=== PATIENT | female | born 2000 | race Caucasian/White ===

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

== ENCOUNTER 2019-02-06 10:48 | Emergency (ER) | payer MEDICAID ==
[~2019-02-06] VITALS: Ht 172.7 cm; Wt 118.3 kg
[2019-02-06 11:30] LABS: MICROSCOPIC NOT IND
[2019-02-06 11:35] LABS: CULTURE INDICATED? NO
[2019-02-06 12:05] LABS: BASOPHILS # (AUTO) 0.02 x10^3/uL (0-0.3); BASOPHILS % (AUTO) 0 % (0-1); EOSINOPHILS # (AUTO) 0.07 x10^3/uL (0-0.8); EOSINOPHILS % (AUTO) 1 % (1-7); LYMPHOCYTES % (AUTO) 33 % (22-44); MD NO; MEAN CORPUSCULAR HEMOGLOBIN 29.4 pg (27.0-34.8); MEAN CORPUSCULAR HGB CONC 33.6 g/dL (32.4-35.8); MEAN CORPUSCULAR VOLUME 87.5 fL (80-100); MEAN PLATELET VOLUME 8.2 fL (7.4-10.4); MONOCYTES % (AUTO) 7 % (2-9); NEUTROPHILS # (AUTO) 3.56 x10^3/uL (1.8-8.0); NEUTROPHILS % (AUTO) 59 % (42-75); PLATELET COUNT 295 x10^3/uL (130-400); RED BLOOD COUNT 4.95 x10^6/uL (3.82-5.3); RED CELL DISTRIBUTION WIDTH 12.9 % (9.6-15.2)
[2019-02-06 12:18] LABS: ALANINE AMINOTRANSFERASE 36 U/L (12-78); ANION GAP 8 mmol/L (5-15); CALCIUM 9.6 mg/dL (8.5-10.1); CHLORIDE 110 mmol/L (98-107)
[2019-02-06 12:23] LABS: ALKALINE PHOSPHATASE 68 U/L (45-117); BILIRUBIN,TOTAL 0.6 mg/dL (0.2-1.0); TOTAL PROTEIN 7.7 g/dL (6.4-8.2)
--- NOTE | 2019-02-06 14:50 | NUR ---
TO ROOM FROM LOBBY. NAD.
[2019-02-06] MEDS ORDERED: MAALOX/HYOSCYAMINE/LIDOCAINE 45 ML BTL ONE (14:55)
[2019-02-06] MEDS ORDERED: ONDANSETRON ODT 4 MG ONE (14:55)
[2019-02-06] MEDS ORDERED: MAALOX/HYOSCYAMINE/LIDOCAINE 45 ML BTL PO ONE (15:00)
[2019-02-06] MEDS ORDERED: ONDANSETRON ODT 4 MG PO ONE (15:00)
--- NOTE | 2019-02-06 15:04 | NUR ---
MD GALLOWAY AT BEDSIDE TO DISCUSS POC & DC PLAN W/ PT, PT REPROTS NO NEEDS OR QUESTIONS AT THIS TIME
[2019-02-06 15:08] VITALS: BP 129/68
== END 2019-02-06 15:10 | disposition home or self-care (01) ==
LOC: ED 15:04
DX: K29.00 Acute gastritis without bleeding (principal); F31.9 Bipolar disorder, unspecified
CPT/HCPCS: 36415; 76700; 80053; 81003; 83690; 84703; 85025; 99284; Q0162

== ENCOUNTER 2019-08-03 10:31 | Emergency (ER) | payer MEDICAID ==
[~2019-08-03] VITALS: Ht 172.7 cm; Wt 113.3 kg
[2019-08-03] MEDS ORDERED: ONDANSETRON 2MG/ML, 2ML IVPush ONE (11:00)
[2019-08-03] MEDS ORDERED: MORPHINE SULFATE 4 MG/ML, 1ML IVPush PRN (11:00)
[2019-08-03] MEDS ORDERED: SODIUM CHLORIDE FLUSH 10ML SYR IVF ONE (11:00)
[2019-08-03] MEDS ORDERED: FAMOTIDINE 20 MG/2 ML IV ONE (11:00)
[2019-08-03] MEDS ORDERED: FAMOTIDINE 20 MG/2 ML ONE (11:17)
[2019-08-03] MEDS ORDERED: MORPHINE SULFATE 4 MG/ML, 1ML ONE (11:17)
[2019-08-03] MEDS ORDERED: ONDANSETRON 2MG/ML, 2ML ONE (11:17)
[2019-08-03 11:23] LABS: MICROSCOPIC NOT IND
[2019-08-03 11:25] LABS: BASOPHILS # (AUTO) 0.03 x10^3/uL (0-0.3); BASOPHILS % (AUTO) 0 % (0-1); EOSINOPHILS # (AUTO) 0.07 x10^3/uL (0-0.8); EOSINOPHILS % (AUTO) 1 % (1-7); LYMPHOCYTES # (AUTO) 2.19 x10^3/uL (1-6.1); LYMPHOCYTES % (AUTO) 29 % (22-44); MD NO; MEAN CORPUSCULAR HEMOGLOBIN 29.1 pg (27.0-34.8); MEAN CORPUSCULAR HGB CONC 33.3 g/dL (32.4-35.8); MEAN CORPUSCULAR VOLUME 87.3 fL (80-100); MEAN PLATELET VOLUME 8.1 fL (7.4-10.4); MONOCYTES # (AUTO) 0.53 x10^3/uL (0-1.4); MONOCYTES % (AUTO) 7 % (2-9); NEUTROPHILS # (AUTO) 4.74 x10^3/uL (1.8-8.0); NEUTROPHILS % (AUTO) 63 % (42-75); PLATELET COUNT 296 x10^3/uL (130-400); RED BLOOD COUNT 4.94 x10^6/uL (3.82-5.3); RED CELL DISTRIBUTION WIDTH 13.4 % (9.6-15.2)
[2019-08-03 11:28] LABS: CULTURE INDICATED? NO
[2019-08-03 11:38] LABS: ALANINE AMINOTRANSFERASE 26 U/L (12-78); ALBUMIN 3.8 g/dL (3.4-5.0); ANION GAP 4 mmol/L (5-15); CALCIUM 9.3 mg/dL (8.5-10.1); CHLORIDE 113 mmol/L (98-107)
[2019-08-03 11:43] LABS: ALKALINE PHOSPHATASE 59 U/L (45-117); BILIRUBIN,TOTAL 0.6 mg/dL (0.2-1.0); TOTAL PROTEIN 7.4 g/dL (6.4-8.2)
--- NOTE | 2019-08-03 11:51 | NUR ---
RECEIVED REPORT FROM HAO HUNTER. ASSUMING CARE AT THIS TIME.
[2019-08-03 11:52] VITALS: BP 109/57
--- NOTE | 2019-08-03 11:53 | NUR ---
PT STATES PAIN IN MANAGABLE AFTER PAIN MEDS. PT RESTING COMFORTABLY ON GURNEY. FAMILY AT BEDSIDE.
--- NOTE | 2019-08-03 11:54 | NUR ---
ALL RESULTS ARE BACK AT THIS TIME. CHART UP FOR RECHECK.
--- NOTE | 2019-08-03 11:57 | NUR ---
PROVIDER AT BEDSIDE TO UPDATE PT ON POC.
== END 2019-08-03 12:13 | disposition home or self-care (01) ==
LOC: ED 11:43
DX: K29.00 Acute gastritis without bleeding (principal)
CPT/HCPCS: 36415; 76700; 80053; 81003; 83690; 84703; 85025; 96374; 96375; 99284; J2270; J2405; J3490

== ENCOUNTER 2019-11-10 17:42 | Emergency (ER) | payer MEDICAID ==
[~2019-11-10] VITALS: Ht 172.7 cm; Wt 110.5 kg
[2019-11-10 17:44] VITALS: BP 127/80
== END 2019-11-10 19:31 | disposition home or self-care (01) ==
LOC: ED 19:10
DX: S80.02XA Contusion of left knee, initial encounter (principal); E03.9 Hypothyroidism, unspecified; W01.0XXA Fall on same level from slipping, tripping and stumbling without subsequent striking against object, initial encounter; Y93.89 Activity, other specified; Y92.098 Other place in other non-institutional residence as the place of occurrence of the external cause; Y99.8 Other external cause status
CPT/HCPCS: 99284

== ENCOUNTER 2019-12-01 13:18 | Emergency (ER) | payer MEDICAID ==
[~2019-12-01] VITALS: Ht 172.7 cm; Wt 113.8 kg
[2019-12-01 13:20] VITALS: BP 129/77
--- NOTE | 2019-12-01 13:52 | NUR ---
REPORT FROM DALE CA.
== END 2019-12-01 14:43 | disposition home or self-care (01) ==
LOC: ED 13:41
DX: S16.1XXA Strain of muscle, fascia and tendon at neck level, initial encounter (principal); S39.012A Strain of muscle, fascia and tendon of lower back, initial encounter; S40.212A Abrasion of left shoulder, initial encounter; V49.40XA Driver injured in collision with unspecified motor vehicles in traffic accident, initial encounter; Y93.89 Activity, other specified; Y92.488 Other paved roadways as the place of occurrence of the external cause; Y99.8 Other external cause status
CPT/HCPCS: 72020; 72050; 72110; 99284

== ENCOUNTER 2020-03-26 19:33 | Emergency (ER) | payer MEDICAID ==
[~2020-03-26] VITALS: Ht 172.7 cm; Wt 106.0 kg
--- NOTE | 2020-03-26 20:06 | NUR ---
LINECASTING MACHINE KEYBOARD OPERATOR: EKG DONE IN TRIAGE.
--- NOTE | 2020-03-26 21:13 | NUR ---
RAILROAD CAR INSPECTOR: PT. TO ROOM FROM LOBBY AT THIS TIME.
--- NOTE | 2020-03-26 21:18 | NUR ---
PT RESTING IN [facility] AT THIS TIME; NADN. DR SIDDIQUI AT FOR PT HISTORY AND ASSESSMENT. PT VERBALIZES UNDERSTANDING OF POC AND ER PROCESS AND DENIES ANY OTHER NEEDS AT THIS TIME. CALL LIGHT IS WITHIN REACH.
[2020-03-26] MEDS ORDERED: KETOROLAC 60 MG/2 ML ONE (21:28)
[2020-03-26] MEDS ORDERED: KETOROLAC 30 MG/1 ML IM ONE (21:30)
--- NOTE | 2020-03-26 21:31 | NUR ---
PT MEDICATED PER MAR FOR PAIN.
[2020-03-26 21:53] LABS: BASOPHILS # (AUTO) 0.02 x10^3/uL (0-0.1); BASOPHILS % (AUTO) 0 % (0-1); EOSINOPHILS # (AUTO) 0.06 x10^3/uL (0-0.4); EOSINOPHILS % (AUTO) 1 % (1-7); LYMPHOCYTES # (AUTO) 3.04 x10^3/uL (1-3.4); LYMPHOCYTES % (AUTO) 32 % (22-44); MD NO; MEAN CORPUSCULAR HEMOGLOBIN 29.5 pg (27.0-34.8); MEAN PLATELET VOLUME 8.6 fL (7.4-10.4); MONOCYTES # (AUTO) 0.65 x10^3/uL (0.2-0.8); MONOCYTES % (AUTO) 7 % (2-9); NEUTROPHILS # (AUTO) 5.75 x10^3/uL (1.8-6.8); NEUTROPHILS % (AUTO) 60 % (42-75); PLATELET COUNT 291 x10^3/uL (130-400); RED BLOOD COUNT 4.78 x10^6/uL (3.82-5.3); RED CELL DISTRIBUTION WIDTH 13.1 % (9.6-15.2)
[2020-03-26 22:00] LABS: ALBUMIN 4.1 g/dL (3.4-5.0); ANION GAP 7 mmol/L (5-15); CALCIUM 9.6 mg/dL (8.5-10.1); CHLORIDE 110 mmol/L (98-107); CREATININE 0.76 mg/dL (0.55-1.02)
[2020-03-26 22:04] LABS: TROPONIN I < 0.015 ng/mL (0.000-0.045)
--- NOTE | 2020-03-26 23:16 | NUR ---
PT D/C WITH D/C SUMMARY AND SCRIPTS. ALL QUESTIONS ANSWERED. PT AMBULATES TO REGISTRATION DESK WITH STEADY GAIT FOR D/C HOME. PT VSS AND UPDATED IN EMR PRIOR TO PT D/C.
[2020-03-26 23:17] VITALS: BP 129/84
== END 2020-03-26 23:19 ==
LOC: ED 21:26
DX: R07.2 Precordial pain (principal); R06.02 Shortness of breath; E03.9 Hypothyroidism, unspecified; Z87.891 Personal history of nicotine dependence
CPT/HCPCS: 36415; 71046; 80048; 82040; 84484; 84703; 85025; 85379; 93005; 96372; 99285; J1885

== ENCOUNTER 2020-04-02 15:12 | Emergency (ER) | payer MEDICAID ==
[~2020-04-02] VITALS: Ht 172.7 cm; Wt 125.0 kg
[2020-04-02] MEDS ORDERED: ASPIRIN 81 MG TABLET CHEW PO ONE (15:30)
[2020-04-02 15:55] LABS: BASOPHILS # (AUTO) 0.02 x10^3/uL (0-0.1); BASOPHILS % (AUTO) 0 % (0-1); EOSINOPHILS # (AUTO) 0.13 x10^3/uL (0-0.4); EOSINOPHILS % (AUTO) 2 % (1-7); LYMPHOCYTES # (AUTO) 2.53 x10^3/uL (1-3.4); LYMPHOCYTES % (AUTO) 36 % (22-44); MD NO; MEAN CORPUSCULAR HEMOGLOBIN 29.5 pg (27.0-34.8); MEAN CORPUSCULAR HGB CONC 33.8 g/dL (32.4-35.8); MEAN CORPUSCULAR VOLUME 87.2 fL (80-100); MEAN PLATELET VOLUME 8.8 fL (7.4-10.4); MONOCYTES # (AUTO) 0.53 x10^3/uL (0.2-0.8); MONOCYTES % (AUTO) 8 % (2-9); NEUTROPHILS # (AUTO) 3.82 x10^3/uL (1.8-6.8); NEUTROPHILS % (AUTO) 54 % (42-75); PLATELET COUNT 280 x10^3/uL (130-400); RED BLOOD COUNT 4.74 x10^6/uL (3.82-5.3); RED CELL DISTRIBUTION WIDTH 13.1 % (9.6-15.2)
--- NOTE | 2020-04-02 15:57 | NUR ---
CIRCULAR SAWYER HELPER: PT FROM LOBBY TO ROOM AT THIS TIME. NO ACUTE DISTRESS NOTED AT THIS TIME.
[2020-04-02] MEDS ORDERED: ASPIRIN 81 MG TABLET CHEW ONE (15:59)
[2020-04-02 16:07] LABS: ALBUMIN 3.9 g/dL (3.4-5.0); ANION GAP 6 mmol/L (5-15); CALCIUM 9.1 mg/dL (8.5-10.1); CHLORIDE 112 mmol/L (98-107); CREATININE 0.71 mg/dL (0.55-1.02)
[2020-04-02 16:11] LABS: TROPONIN I < 0.015 ng/mL (0.000-0.045)
--- NOTE | 2020-04-02 16:15 | NUR ---
THIS IS A 20 YO FEMALE COMING IN FOR LEFT SIDED SHARP CHEST PAIN RADIATING UP NECK AND DOWN LEFT ARM STARTING AT APPROX 1330. PATIENT WAS SEEN HERE 2 WEEKS AGO FOR SAME AND WAS TOLD TO COME BACK IF NOT GETTING BETTER. PATIENT HAS HX OF ANXIETY, APPEARS AXIOUS AT THIS TIME. ALS OC/O SOB RELATED TO PAIN, LUNG SOUNDS CLEAR THROUGHOUT, SPEAKING IN FULL SENTENCES, RESPIRATIONS EVEN AND UNLABORED. ALL MONITORING IN PLACE, NSR ON CENTRAL SUPPLY AIDE, VSS, NADN. PATIENT MEDICATED PER EMAR, TOLERATED WELL. CALL LIGHT IN REACH, DENIES NEEDS AT THIS TIME. AWAITING PENDING LABS
--- NOTE | 2020-04-02 16:22 | NUR ---
TO ROOM FOR EVAL
[2020-04-02] MEDS ORDERED: KETOROLAC 30 MG/1 ML IM ONE (16:30)
[2020-04-02] MEDS ORDERED: KETOROLAC 30 MG/1 ML ONE (16:35)
--- NOTE | 2020-04-02 16:51 | NUR ---
PATIENT MEDICATED PER EMAR, TOLERATED WELL. WILL MONITOR FOR ANY ADVERSE REACTIONS, AND VERIFY RELIEF OF PAIN PRIOR TO DISCHARGE
[2020-04-02 16:52] VITALS: BP 119/69
--- NOTE | 2020-04-02 17:19 | NUR ---
Patient given discharge instructions and they have confirmed that they understand the instructions. Patient ambulatory with steady gait.
== END 2020-04-02 17:21 | disposition home or self-care (01) ==
LOC: ED 16:48
DX: R07.89 Other chest pain (principal); E03.9 Hypothyroidism, unspecified; R94.31 Abnormal electrocardiogram [ECG] [EKG]
CPT/HCPCS: 36415; 71045; 80048; 82040; 83880; 84484; 85025; 93005; 96372; 99285; J1885

== ENCOUNTER 2020-04-11 17:39 | Emergency (ER) | payer MEDICAID ==
[~2020-04-11] VITALS: Ht 172.7 cm; Wt 111.4 kg
[2020-04-11] MEDS ORDERED: HYDROcodone/APAP 5/325 TABLET PO ONE (18:00)
[2020-04-11] MEDS ORDERED: KETOROLAC 30 MG/1 ML IM ONE (18:00)
[2020-04-11] MEDS ORDERED: KETOROLAC 60 MG/2 ML ONE (18:02)
[2020-04-11] MEDS ORDERED: HYDROcodone/APAP 5/325 TABLET ONE (18:03)
[2020-04-11 18:41] LABS: HCG UR SG 1.024 (1.003-1.030)
[2020-04-11 19:17] VITALS: BP 121/83
== END 2020-04-11 19:30 | disposition home or self-care (01) ==
LOC: ED 19:24
DX: R10.2 Pelvic and perineal pain (principal); N98.9 Complication associated with artificial fertilization, unspecified; E03.9 Hypothyroidism, unspecified; Z87.891 Personal history of nicotine dependence
CPT/HCPCS: 81025; 96372; 99283; J1885

== ENCOUNTER 2020-04-29 16:05 | Emergency (ER) | payer MEDICAID ==
[~2020-04-29] VITALS: Ht 172.7 cm; Wt 105.0 kg
[2020-04-29 16:12] VITALS: BP 103/56
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
[2020-04-29] MEDS ORDERED: SODIUM CHLORIDE 0.9% 1,000 ML IV ONE (16:19)
[2020-04-29] MEDS ORDERED: HYDROmorphone 1 MG/ML, 1ML INJ IVPush PRN (16:30)
[2020-04-29] MEDS ORDERED: HYDROmorphone 1 MG/ML, 1ML INJ ONE (16:31)
--- NOTE | 2020-04-29 16:50 | NUR ---
MEDICATED PER EMAR FOR LOWER BACK PAIN AT 04/[address] SCAN AT 1650
[2020-04-29] MEDS ORDERED: OMNIPAQUE 350 MG/ML, 100ML BOTTLE ONE (17:11)
--- NOTE | 2020-04-29 17:53 | NUR ---
DISCHARGED IN CARE OF SIGNIFICANT OTHER
== END 2020-04-29 17:55 | disposition home or self-care (01) ==
LOC: ED 17:14
DX: S30.1XXA Contusion of abdominal wall, initial encounter (principal); S20.212A Contusion of left front wall of thorax, initial encounter; E03.9 Hypothyroidism, unspecified; V49.9XXA Car occupant (driver) (passenger) injured in unspecified traffic accident, initial encounter; Y93.89 Activity, other specified; Y92.488 Other paved roadways as the place of occurrence of the external cause; Y99.8 Other external cause status
CPT/HCPCS: 74177; 96361; 96374; 99285; J1170; J7030; Q9967

== ENCOUNTER 2020-05-05 17:00 | Emergency (ER) | payer MEDICAID ==
[~2020-05-05] VITALS: Ht 172.7 cm; Wt 110.5 kg
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
--- NOTE | 2020-05-05 17:51 | NUR ---
PT TRANSPORTED TO [facility].
[2020-05-05 18:10] VITALS: BP 114/69
== END 2020-05-05 19:02 | disposition home or self-care (01) ==
LOC: ED 18:24
DX: G89.11 Acute pain due to trauma (principal); R07.89 Other chest pain; M94.0 Chondrocostal junction syndrome [Tietze]; R94.31 Abnormal electrocardiogram [ECG] [EKG]; E03.9 Hypothyroidism, unspecified; Z87.891 Personal history of nicotine dependence; X58.XXXA Exposure to other specified factors, initial encounter; Y93.89 Activity, other specified; Y92.89 Other specified places as the place of occurrence of the external cause; Y99.8 Other external cause status
CPT/HCPCS: 93005; 99283

== ENCOUNTER 2020-05-06 16:36 | Emergency (ER) | payer MEDICAID ==
[~2020-05-06] VITALS: Ht 172.7 cm; Wt 110.0 kg
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
--- NOTE | 2020-05-06 17:50 | NUR ---
PT PROVIDED W/ URINE CUP AND EDUCATED ON NEED FOR SAMPLE.
[2020-05-06 18:09] LABS: BASOPHILS # (AUTO) 0.01 x10^3/uL (0-0.1); BASOPHILS % (AUTO) 0 % (0-1); EOSINOPHILS # (AUTO) 0.04 x10^3/uL (0-0.4); EOSINOPHILS % (AUTO) 1 % (1-7); LYMPHOCYTES % (AUTO) 32 % (22-44); MD NO; MEAN CORPUSCULAR HEMOGLOBIN 29.8 pg (27.0-34.8); MEAN CORPUSCULAR HGB CONC 34.3 g/dL (32.4-35.8); MEAN CORPUSCULAR VOLUME 86.8 fL (80-100); MEAN PLATELET VOLUME 8.4 fL (7.4-10.4); MONOCYTES # (AUTO) 0.59 x10^3/uL (0.2-0.8); MONOCYTES % (AUTO) 8 % (2-9); NEUTROPHILS # (AUTO) 4.56 x10^3/uL (1.8-6.8); NEUTROPHILS % (AUTO) 60 % (42-75); PLATELET COUNT 327 x10^3/uL (130-400); RED BLOOD COUNT 4.91 x10^6/uL (3.82-5.3); RED CELL DISTRIBUTION WIDTH 12.9 % (9.6-15.2)
--- NOTE | 2020-05-06 18:13 | NUR ---
URINE COLLECTED AND SENT TO LAB.
[2020-05-06 18:17] LABS: ALANINE AMINOTRANSFERASE 19 U/L (12-78); ANION GAP 7 mmol/L (5-15); CALCIUM 9.4 mg/dL (8.5-10.1); CHLORIDE 109 mmol/L (98-107); CREATININE 0.81 mg/dL (0.55-1.02)
[2020-05-06 18:22] LABS: ALKALINE PHOSPHATASE 50 U/L (45-117); BILIRUBIN,TOTAL 0.5 mg/dL (0.2-1.0); TOTAL PROTEIN 7.9 g/dL (6.4-8.2)
[2020-05-06 18:32] LABS: MICROSCOPIC NOT IND
--- NOTE | 2020-05-06 18:48 | NUR ---
ALL TESTS RESULTED PT IS UP FOR RECHECK AT THIS TIME.
[2020-05-06 19:13] VITALS: BP 112/63
== END 2020-05-06 19:37 | disposition home or self-care (01) ==
LOC: ED 18:07
DX: S23.9XXA Sprain of unspecified parts of thorax, initial encounter (principal); E03.9 Hypothyroidism, unspecified; V43.51XA Car driver injured in collision with sport utility vehicle in traffic accident, initial encounter; Y93.89 Activity, other specified; Y92.410 Unspecified street and highway as the place of occurrence of the external cause; Y99.8 Other external cause status
CPT/HCPCS: 36415; 80053; 81003; 84703; 85025; 99283

== ENCOUNTER 2020-11-17 12:02 | Emergency (ER) | payer MEDICAID ==
[~2020-11-17] VITALS: Ht 172.7 cm; Wt 103.0 kg
[~2020-11-17 12:02] MED LIST changes: -RISP3TAB3 PO; +RISP3TAB58 PO
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
[2020-11-17] MEDS ORDERED: KETOROLAC 30 MG/1 ML IM ONE (13:00)
[2020-11-17] MEDS ORDERED: KETOROLAC 60 MG/2 ML ONE (13:01)
[2020-11-17 13:30] LABS: MICROSCOPIC NOT IND
--- NOTE | 2020-11-17 13:48 | NUR ---
DR REYNAGA BEDSIDE
[2020-11-17] MEDS ORDERED: MORPHINE SULFATE 4 MG/ML, 1ML ONE (14:19)
[2020-11-17] MEDS ORDERED: ONDANSETRON 2MG/ML, 2ML ONE (14:19)
[2020-11-17] MEDS ORDERED: MORPHINE SULFATE 4 MG/ML, 1ML IVPush PRN (14:30)
[2020-11-17] MEDS ORDERED: ONDANSETRON 2MG/ML, 2ML IVPush ONE (14:30)
[2020-11-17] MEDS ORDERED: SODIUM CHLORIDE FLUSH 10ML SYR IVF ONE (14:30)
[2020-11-17 14:40] LABS: BASOPHILS % (AUTO) 0 % (0-1); EOSINOPHILS % (AUTO) 1 % (1-7); LYMPHOCYTES % (AUTO) 28 % (22-44); MEAN CORPUSCULAR HEMOGLOBIN 29.6 pg (27.0-34.8); MEAN CORPUSCULAR HGB CONC 33.9 g/dL (32.4-35.8); MEAN PLATELET VOLUME 7.9 fL (7.4-10.4); MONOCYTES % (AUTO) 8 % (2-9); NEUTROPHILS % (AUTO) 63 % (42-75); PLATELET COUNT 294 x10^3/uL (130-400); RED BLOOD COUNT 4.87 x10^6/uL (3.82-5.3); RED CELL DISTRIBUTION WIDTH 12.6 % (9.6-15.2)
[2020-11-17 14:50] LABS: ALBUMIN 3.8 g/dL (3.4-5.0); ANION GAP 8 mmol/L (5-15); CALCIUM 9.2 mg/dL (8.5-10.1); CHLORIDE 109 mmol/L (98-107)
[2020-11-17 14:53] LABS: ALANINE AMINOTRANSFERASE 28 U/L (12-78); ALKALINE PHOSPHATASE 47 U/L (45-117); BILIRUBIN,TOTAL 0.6 mg/dL (0.2-1.0); CREATININE 0.64 mg/dL (0.55-1.02); TOTAL PROTEIN 7.4 g/dL (6.4-8.2)
[2020-11-17 14:56] LABS: MD NO
[2020-11-17] MEDS ORDERED: OMNIPAQUE 350 MG/ML, 100ML BOTTLE ONE (15:22)
[2020-11-17 16:44] VITALS: BP 98/65
--- NOTE | 2020-11-17 16:48 | NUR ---
PT REC'VD DISCHARGE INSTRUCTIONS AND EDUCATION. PT HAD NO FURTHER QUESTIONS. PT AMBULATED TO D/C AREA, STEADY GAIT.
== END 2020-11-17 16:53 | disposition home or self-care (01) ==
LOC: ED 14:46
DX: G89.11 Acute pain due to trauma (principal); M54.5 Low back pain; R94.31 Abnormal electrocardiogram [ECG] [EKG]; R10.9 Unspecified abdominal pain; E03.9 Hypothyroidism, unspecified
CPT/HCPCS: 36415; 74177; 80053; 81003; 85025; 93005; 96372; 96374; 96375; 99285; J1885; J2270; J2405; Q9967

== ENCOUNTER 2020-11-19 09:38 | Emergency (ER) | payer MEDICAID ==
[~2020-11-19] VITALS: Ht 172.7 cm; Wt 103.3 kg
--- NOTE | 2020-11-19 09:50 | NUR ---
PATIENT WALKED BACK FROM TRIAGE WITH CHIEF C/O "EXTREME BACK PAIN X9 MONTHS." PATIENT REPORTS FEVER THIS MORNING OF 100.0 F. PATIENT SEEN 2 DAYS AGO FOR BACK PAIN AND TOLD TO COME BACK TO ED IF SHE DEVELOPED A FEVER. PATIENT REPORTS VYAS, DENIES NUMBNESS/TINGLING. MARILEE, CAROL, CALL LIGHT WITHIN REACH.
[2020-11-19] MEDS ORDERED: KETOROLAC 30 MG/1 ML ONE (10:10)
[2020-11-19] MEDS ORDERED: METHOCARBAMOL 750 MG TABLET ONE (10:10)
[2020-11-19 10:20] LABS: BASOPHILS % (AUTO) 0 % (0-1); EOSINOPHILS % (AUTO) 1 % (1-7); LYMPHOCYTES % (AUTO) 21 % (22-44); MD NO; MEAN CORPUSCULAR HEMOGLOBIN 29.9 pg (27.0-34.8); MEAN CORPUSCULAR HGB CONC 34.5 g/dL (32.4-35.8); MEAN PLATELET VOLUME 7.9 fL (7.4-10.4); MONOCYTES % (AUTO) 8 % (2-9); NEUTROPHILS % (AUTO) 70 % (42-75); PLATELET COUNT 279 x10^3/uL (130-400); RED BLOOD COUNT 4.72 x10^6/uL (3.82-5.3); RED CELL DISTRIBUTION WIDTH 12.5 % (9.6-15.2)
[2020-11-19 10:21] LABS: CHLORIDE 111 mmol/L (98-107)
--- NOTE | 2020-11-19 10:25 | NUR ---
20 GAUGE IV STARTED LEFT AC, PATIENT MEDICATED PER eMAR, NADN, VSS, CALL LIGHT WITHIN REACH. PATIENT EDUCATED ON NEED FOR URINE SAMPLE, PATIENT UNABLE TO VOID AT THIS TIME, WILL TRY AFTER DRINKING SOME WATER.
[2020-11-19] MEDS ORDERED: SODIUM CHLORIDE FLUSH 10ML SYR IVF ONE (10:30)
[2020-11-19] MEDS ORDERED: KETOROLAC 30 MG/1 ML IVPush ONE (10:30)
[2020-11-19] MEDS ORDERED: METHOCARBAMOL 750 MG TABLET PO ONE (10:30)
[2020-11-19 10:34] LABS: ANION GAP 6 mmol/L (5-15); CALCIUM 9.1 mg/dL (8.5-10.1)
[2020-11-19 10:37] LABS: ALANINE AMINOTRANSFERASE 22 U/L (12-78); ALKALINE PHOSPHATASE 45 U/L (45-117); BILIRUBIN,TOTAL 0.6 mg/dL (0.2-1.0); CREATININE 0.61 mg/dL (0.55-1.02); TOTAL PROTEIN 7.3 g/dL (6.4-8.2)
--- NOTE | 2020-11-19 11:07 | NUR ---
PATIENT AMBULATED TO BATHROOM FOR URINE SAMPLE WITH STEADY GAIT.
--- NOTE | 2020-11-19 11:11 | NUR ---
URINE SAMPLE COLLECTED AND SENT TO LAB.
[2020-11-19 11:34] VITALS: BP 117/66
[2020-11-19 11:39] LABS: MICROSCOPIC INDICATED
--- NOTE | 2020-11-19 12:10 | NUR ---
PATIENT SITTING IN GURNEY, SIGNIFICANT OTHER AT BEDSIDE. MARILEE, BALDOS, CALL LIGHT WITHIN REACH. PATIENT UP FOR RECHECK.
--- NOTE | 2020-11-19 12:53 | NUR ---
WARM BLANKET PROVIDED TO PATIENT. PATIENT UP FOR RECHECK.
--- NOTE | 2020-11-19 14:08 | NUR ---
IV removed with tip intact. Patient given discharge instructions and they have confirmed that they understand the instructions. Patient stable and ambulatory with steady gait from ED to private vehicle with friend.
== END 2020-11-19 14:09 | disposition home or self-care (01) ==
LOC: ED 09:56
DX: G89.29 Other chronic pain (principal); M54.5 Low back pain; R10.9 Unspecified abdominal pain; R50.9 Fever, unspecified; E03.9 Hypothyroidism, unspecified
CPT/HCPCS: 36415; 80053; 81001; 83690; 84703; 85025; 87086; 96374; 99283; J1885

== ENCOUNTER 2020-12-31 09:48 | Emergency (ER) | payer MEDICAID ==
[~2020-12-31] VITALS: Ht 172.7 cm; Wt 102.4 kg
[2020-12-31 10:57] LABS: BASOPHILS % (AUTO) 1 % (0-1); EOSINOPHILS % (AUTO) 1 % (1-7); LYMPHOCYTES % (AUTO) 38 % (22-44); MD NO; MEAN CORPUSCULAR HEMOGLOBIN 29.8 pg (27.0-34.8); MEAN CORPUSCULAR HGB CONC 33.8 g/dL (32.4-35.8); MEAN PLATELET VOLUME 7.6 fL (7.4-10.4); MONOCYTES % (AUTO) 10 % (2-9); NEUTROPHILS % (AUTO) 50 % (42-75); PLATELET COUNT 285 x10^3/uL (130-400); RED CELL DISTRIBUTION WIDTH 12.9 % (9.6-15.2)
[2020-12-31] MEDS ORDERED: KETOROLAC 30 MG/1 ML IM ONE (11:00)
--- NOTE | 2020-12-31 11:00 | NUR ---
assumed care of pt. pt here c/o intermittent CP x1 week with intermittent SOB. pt denies injury, no recent long car rides, no resp. distress. pt has not taken anything for pain MOTEL MAID. pink warm and dry. no family at bedside
[2020-12-31] MEDS ORDERED: KETOROLAC 60 MG/2 ML ONE (11:02)
[2020-12-31 11:07] LABS: ALBUMIN 3.8 g/dL (3.4-5.0); ANION GAP 5 mmol/L (5-15); CALCIUM 9.2 mg/dL (8.5-10.1); CHLORIDE 113 mmol/L (98-107); CREATININE 0.55 mg/dL (0.55-1.02)
[2020-12-31 11:11] LABS: TROPONIN I < 0.015 ng/mL (0.000-0.045)
[2020-12-31 12:20] VITALS: BP 117/71
== END 2020-12-31 12:24 | disposition home or self-care (01) ==
LOC: ED 10:12
DX: R07.89 Other chest pain (principal); M54.5 Low back pain; E03.9 Hypothyroidism, unspecified
CPT/HCPCS: 36415; 71045; 80048; 82040; 84484; 85025; 93005; 96372; 99285; J1885

== ENCOUNTER 2021-02-16 20:04 | Emergency (ER) | payer MEDICAID ==
[~2021-02-16] VITALS: Ht 172.7 cm; Wt 106.8 kg
[2021-02-16 21:08] LABS: BASOPHILS % (AUTO) 1 % (0-1); EOSINOPHILS % (AUTO) 0 % (1-7); LYMPHOCYTES % (AUTO) 32 % (22-44); MEAN CORPUSCULAR HEMOGLOBIN 30.1 pg (27.0-34.8); MEAN CORPUSCULAR HGB CONC 34.5 g/dL (32.4-35.8); MEAN PLATELET VOLUME 7.6 fL (7.4-10.4); MONOCYTES % (AUTO) 6 % (2-9); NEUTROPHILS % (AUTO) 61 % (42-75); PLATELET COUNT 352 x10^3/uL (130-400); RED BLOOD COUNT 4.81 x10^6/uL (3.82-5.3); RED CELL DISTRIBUTION WIDTH 12.6 % (9.6-15.2)
[2021-02-16 21:17] LABS: ALBUMIN 4.1 g/dL (3.4-5.0); ANION GAP 5 mmol/L (5-15); CALCIUM 9.4 mg/dL (8.5-10.1); CHLORIDE 110 mmol/L (98-107); CREATININE 0.68 mg/dL (0.55-1.02)
--- NOTE | 2021-02-16 22:20 | NUR ---
SMITHA RN: PT REPORTS LEFT SIDED CHEST PAIN X3 DAYS WITH N/V. PATHOLOGY LABORATORY AIDE ON. NSR NOTED. VS STABLE. CALL LIGHT IN PLACE.
--- NOTE | 2021-02-16 22:30 | NUR ---
SMITHA RN: REPORT GIVEN TO DALE HARMAN
[2021-02-16] MEDS ORDERED: ONDANSETRON ODT 4 MG ONE (23:00)
[2021-02-16] MEDS ORDERED: ONDANSETRON ODT 4 MG PO ONE (23:00)
--- NOTE | 2021-02-16 23:07 | NUR ---
pt medicated per emar, provided water for po challenge
[2021-02-16 23:13] LABS: MICROSCOPIC INDICATED
[2021-02-16 23:21] VITALS: BP 109/68
--- NOTE | 2021-02-16 23:30 | NUR ---
PT STATES FEELING MUCH BETTER, TOLERATED PO INTAKE. DENIES NAUSEA
== END 2021-02-17 00:02 | disposition home or self-care (01) ==
LOC: ED 20:38
DX: A08.4 Viral intestinal infection, unspecified (principal); R11.2 Nausea with vomiting, unspecified; E03.9 Hypothyroidism, unspecified
CPT/HCPCS: 36415; 80048; 81001; 82040; 84703; 85025; 99283; Q0162

== ENCOUNTER 2021-02-20 00:02 | Emergency (ER) | payer MEDICAID ==
[~2021-02-20] VITALS: Ht 172.7 cm; Wt 110.0 kg
--- NOTE | 2021-02-20 00:26 | NUR ---
PT NOT IN LOBBY WHEN CALLED FOR ROOM.
[2021-02-20] MEDS ORDERED: SODIUM CHLORIDE FLUSH 10ML SYR IVF ONE (01:00)
[2021-02-20] MEDS ORDERED: SODIUM CHLORIDE 0.9% 1,000ML IVBOLUS ONE (01:00)
[2021-02-20] MEDS ORDERED: ACETAMINOPHEN 500 MG TABLET PO ONE (01:00)
[2021-02-20 01:21] LABS: BASOPHILS % (AUTO) 1 % (0-1); EOSINOPHILS % (AUTO) 2 % (1-7); LYMPHOCYTES % (AUTO) 40 % (22-44); MEAN CORPUSCULAR HEMOGLOBIN 30.4 pg (27.0-34.8); MEAN CORPUSCULAR HGB CONC 34.6 g/dL (32.4-35.8); MEAN PLATELET VOLUME 7.7 fL (7.4-10.4); MONOCYTES % (AUTO) 9 % (2-9); NEUTROPHILS % (AUTO) 49 % (42-75); PLATELET COUNT 329 x10^3/uL (130-400); RED BLOOD COUNT 4.41 x10^6/uL (3.82-5.3); RED CELL DISTRIBUTION WIDTH 12.6 % (9.6-15.2)
[2021-02-20] MEDS ORDERED: ACETAMINOPHEN 500 MG TABLET ONE (01:22)
[2021-02-20 01:33] LABS: ALBUMIN 3.6 g/dL (3.4-5.0); ANION GAP 3 mmol/L (5-15); CALCIUM 8.9 mg/dL (8.5-10.1); CHLORIDE 111 mmol/L (98-107); CREATININE 0.77 mg/dL (0.55-1.02)
[2021-02-20 01:34] VITALS: BP 112/64
[2021-02-20 01:36] LABS: TROPONIN I < 0.015 ng/mL (0.000-0.045)
== END 2021-02-20 03:14 | disposition home or self-care (01) ==
LOC: ED 01:01
DX: R07.89 Other chest pain (principal); F10.10 Alcohol abuse, uncomplicated; E03.9 Hypothyroidism, unspecified; Y90.0 Blood alcohol level of less than 20 mg/100 ml
CPT/HCPCS: 36415; 71046; 80048; 82040; 84443; 84484; 85025; 93005; 96360; 96361; 99285; J7030

== ENCOUNTER 2021-03-29 13:50 | Emergency (ER) | payer MEDICAID ==
[~2021-03-29] VITALS: Ht 172.7 cm; Wt 110.0 kg
[2021-03-29 13:56] VITALS: BP 127/80
--- NOTE | 2021-03-29 14:56 | NUR ---
Patient given discharge instructions and they have confirmed that they understand the instructions. Patient ambulatory with steady gait.
== END 2021-03-29 14:57 | disposition home or self-care (01) ==
LOC: ED 14:14
DX: H66.001 Acute suppurative otitis media without spontaneous rupture of ear drum, right ear (principal); R11.2 Nausea with vomiting, unspecified; E03.9 Hypothyroidism, unspecified
CPT/HCPCS: 99283

== ENCOUNTER 2021-04-08 14:58 | Emergency (ER) | payer MEDICAID ==
[~2021-04-08] VITALS: Ht 172.7 cm; Wt 111.0 kg
[2021-04-08 15:08] VITALS: BP 139/82
[2021-04-08 16:42] LABS: BASOPHILS % (AUTO) 1 % (0-1); EOSINOPHILS % (AUTO) 3 % (1-7); LYMPHOCYTES % (AUTO) 29 % (22-44); MEAN CORPUSCULAR HEMOGLOBIN 29.8 pg (27.0-34.8); MEAN PLATELET VOLUME 7.4 fL (7.4-10.4); MONOCYTES % (AUTO) 7 % (2-9); NEUTROPHILS % (AUTO) 61 % (42-75); PLATELET COUNT 338 x10^3/uL (130-400); RED BLOOD COUNT 4.86 x10^6/uL (3.82-5.3); RED CELL DISTRIBUTION WIDTH 12.5 % (9.6-15.2)
[2021-04-08 16:44] LABS: ANION GAP 2 mmol/L (5-15); CALCIUM 9.6 mg/dL (8.5-10.1); CHLORIDE 111 mmol/L (98-107)
[2021-04-08 16:50] LABS: ALANINE AMINOTRANSFERASE 26 U/L (12-78); ALKALINE PHOSPHATASE 53 U/L (45-117); BILIRUBIN,TOTAL 0.5 mg/dL (0.2-1.0); CREATININE 0.68 mg/dL (0.55-1.02); TOTAL PROTEIN 7.8 g/dL (6.4-8.2); TROPONIN I < 0.015 ng/mL (0.000-0.045)
--- NOTE | 2021-04-08 18:08 | NUR ---
NOTIFIED BY REG STAFF THAT PT SIGNED OUT FROM TRIAGE.
== END 2021-04-08 18:10 | disposition left against medical advice (07) ==
LOC: ED 15:00
DX: R11.2 Nausea with vomiting, unspecified (principal); R42 Dizziness and giddiness; R07.89 Other chest pain
CPT/HCPCS: 36415; 71045; 80053; 84484; 84703; 85025; 93005; 99285